=== PATIENT | female | born 1965 | race Caucasian/White ===

== ENCOUNTER 2016-02-08 20:13 | Emergency (ER) ==
[2016-02-08 21:31] LABS: MANUAL DIFF NEEDED? NO
[2016-02-08 21:33] LABS: BASO% 0.3 % (0.0-0.8); EOS% 3.2 % (0.0-10.0); HEMATOCRIT 35.7 % (37.0-47.0); HEMOGLOBIN 11.6 g/dL (12.0-16.0); LYMPH# 1.47 X1000 (1.2-3.4); LYMPH% 23.8 % (20.5-51.1); MCH 26.4 PG (27-31); MCHC 32.5 g/dL (33-37); MCV 81.3 FL (81-99); MONO% 8.1 % (1.7-9.3); MPV 9.9 FL (7.4-10.4); NEUT% 64.6 % (42.2-75.2); PLT 301 X1000 (130-400); RBC 4.39 XMIL (4.2-5.4)
[2016-02-08 21:52] LABS: ALBUMIN 4.1 g/dL (3.5-5.0); CALCIUM 9.6 mg/dL (8.8-10.2); TOTAL BILIRUBIN 0.16 mg/dL (0.20-1.00); TOTAL PROTEIN 6.8 g/dL (6.3-8.3)
[2016-02-08] MEDS ORDERED: TORADOL IM ONE (22:48)
[2016-02-08] MEDS ORDERED: ZOFRAN ODT PO ONE (22:48)
--- NOTE | 2016-02-08 22:48 | PROVIDER DOCUMENTATION ---
HPI-Headache - General Source: patient - History of Present Illness-Headache Headache Location: reports: frontal Quality of Pain: reports: aching Severity: reports: mild Onset/Duration: reports: 5 days ago Timing: reports: still present Headache Context: reports: nothing Any recent trauma/injury?: reports: none Headache severity at the maximum: mild Headache Exacerbated by:: reports: nothing Modifying Factors: improves with: nothing Associated Symptoms: reports: headache, nausea Similar Symptoms Previously?: No Recently seen or treated by another doctor?: No <Leti Gaona - Last Filed: 02/08/16 23:28> <Tamra Avalos - Last Filed: 02/09/16 00:03> - General Chief Complaint: Headache Stated Complaint: GRUBER Time Seen by Provider: 02/08/16 21:04 Allergies/Adverse Reactions: Patient Allergies Allergy/AdvReac Type Severity Reaction Status Date / Time No Known Allergies Allergy Verified 02/08/16 23:57 - History of Present Illness-Headache Nature of Presenting Problem: 50 year old F presents to the ED with a cc of a frontal headache with an onset of 5 days ago. Pt states that pain radiates around head associated with nausea. (Leti Gaona) Review of Systems - Adult - REVIEW OF SYSTEMS - ADULT Constitutional: denies: chills, fever Eyes: reports: no symptoms reported Ears, Nose, Mouth & Throat: reports: no symptoms reported Cardiovascular: denies: chest pain, palpitations Respiratory: denies: cough, shortness of breath Gastrointestinal: reports: nausea. denies: abdominal pain, vomiting Genitourinary: reports: no symptoms reported Musculoskeletal: reports: no symptoms reported Integumentary: reports: no symptoms reported Neurological: reports: headache/migraines. denies: dizziness/vertigo Psychiatric: reports: no symptoms reported Endocrine: reports: no symptoms reported Hematologic/Lymphatic: reports: no symptoms reported Allergic/Immunologic: reports: no symptoms reported All Other Systems: Reviewed and Negative <Leti Gaona - Last Filed: 02/08/16 23:28> Past History - Adult - PAST MEDICAL HISTORY-ADULT Review of Records: reports: Nursing Assessment Review, Medications Reviewed Major Childhood Illnesses: reports: denies history Other Conditions: reports: denies history - PRIOR SURGERIES/PROCEDURES Surgical/Procedure History: reports: none - IMMUNIZATION STATUS Childhood Immunizations: See Nurse Assessment Flu Vaccine: See Nurse Assessment - SOCIAL HISTORY Smoking: non-smoker Substance Use: none/never Alcohol Use Frequency: never <Leti Gaona - Last Filed: 02/08/16 23:28> Physical Exam- Neurological - Physical Exam-Neuro Initial Vital Signs Reviewed: Yes General Appearance: appears well, alert, no apparent distress Eye Exam: bilateral eye: normal inspection, PERRL, EOMI Head Injury: no evidence of injury Respiratory: chest non-tender, lungs clear, normal breath sounds Cardiovascular: normal peripheral pulses, regular rate, rhythm, no edema Extremity: normal inspection learning support specialist Exam: normal hearing, normal speech, PERRL Motor/Sensory: no motor deficit, no sensory deficit, no pronator drift, negative Babinski's sign Neurologic: learning support specialist II-XII nml as tested, no motor/sensory deficits Integumentary: normal color, normal turgor, warm/dry Psych/Mental Status: AL, normal mood/affect, normal thought content, normal thought process, oriented x 3 <Leti Gaona - Last Filed: 02/08/16 23:28> Progress - REASSESSMENT Reassessment #1 Time Reassessed: 23:55 Status: improving <Tamra Avalos - Last Filed: 02/09/16 00:03> Departure <Leti Gaona - Last Filed: 02/08/16 23:28> - Departure Time of Disposition Order: 00:00 Certified Medical Emergency: Emergent <Tamra Avalos - Last Filed: 02/09/16 00:03> - Departure DIAGNOSIS: Headache Qualifiers: Headache type: unspecified Headache chronicity pattern: acute headache Intractability: not intractable Qualified Code(s): R51 - Headache Disposition: HOME 01 Condition: Stable Additional Instructions: Follow up with your primary care doctor as needed. ED Follow Up Instructions: You have been treated by a care provider in the Emergency Department. These instructions are being provided to you so you can have an understanding of how to care for yourself upon discharge. Upon discharge from the Emergency Department, you are responsible for making arrangements for follow-up care by a physician of your choice. Take all prescribed medications as directed. Return to the Emergency Department immediately for any new or worsening symptoms. You may call the Physician Referral phone number at [phone] to obtain a list of Physicians who are taking new patients. Prescriptions: Metoclopramide [Reglan] 10 mg PO Q6HR #14 tablet Ketorolac [Toradol] 10 mg PO Q6H PRN PRN #20 tablet PRN Reason: Headache Instructions: Migraine Headache, [id number] Attestation - Scribe Verification/Attestation Scribe:: Leti aGona Acting as Scribe for:: Tamra Avalos Scribe documention review:: This chart was documented by a scribe and accurately reflects the service the provider performed and the decisions made by the provider. <Leti Gaona - Last Filed: 02/08/16 23:28> - Physician/ Mid-level Attestation Patient care was provided by Mid-level provider (CUSTOM MOTORCYCLE PAINTER/PA):: Yes Mid-level provider:: Tamra Avalos Mid-level documentation review:: The Mid-level provider documentation, treatment plan and medical decision making was reviewed by the physician who agrees with all treatment and medical decision making by the P. <Tamra Avalos - Last Filed: 02/09/16 00:03> Physician Attestation - Physician Attestation I, the provider, attest to the following statement:: Tamra Avalos Physician documentation Attestation:: This documentation recorded by the scribe accurately reflects the service I personally performed and the decisions made by me. <Leti Gaona - Last Filed: 02/08/16 23:28>
[2016-02-08] MEDS ORDERED: BENADRYL IM ONE (22:49)
[2016-02-08] MEDS ORDERED: NORFLEX IM ONE (22:49)
[2016-02-08 22:51] LABS: URINE MICRO REVIEW NEEDED? NO; URINE SOURCE CLEAN CATCH
[2016-02-08 22:54] LABS: BILIRUBIN URINE NEGATIVE (NEGATIVE); BLOOD URINE NEGATIVE (NEGATIVE); COLOR STRAW; GLUCOSE URINE NEGATIVE (NEGATIVE); LEUKOCYTES URINE SMALL (NEGATIVE); NITRITE URINE NEGATIVE (NEGATIVE); PROTEIN URINE NEGATIVE (NEGATIVE); SP GRAVITY URINE 1.015; TURBIDITY URINE CLEAR (CLEAR); UROBILINOGEN URINE NORMAL (NORMAL)
[2016-02-08 22:56] LABS: UR EPITHELIAL CELLS <10 /HPF (<10); URINE BACTERIA 2+ /HPF; URINE CULTURE NEEDED? YES; URINE RBC <10 /HPF (<10); URINE WBC <10 /HPF (<10)
[2016-02-09 00:44] VITALS: BP 167/84
--- NOTE | 2016-02-09 07:35 | Diag Imaging Result Document ---
PROCEDURE NAME: HEAD W/O CONTRAST - 02/08/[address], 02/08/2016: COMPARISON: None. FINDINGS: The ventricles and sulci are normal in size and contour. No intracranial mass or hemorrhage. The skull is intact. There is left maxillary sinusitis. IMPRESSION: Sinusitis. Otherwise, no acute disease.
== END 2016-02-09 00:44 | disposition home or self-care (01) ==
LOC: ED 20:13
DX: R51 Headache (principal); R11.0 Nausea
CPT/HCPCS: 36415; 70450; 80053; 81001; 82948; 85025; 87077; 87088; 87186; 96372; J1200; J1885; J2360